=== PATIENT | male | born 1970 | race Caucasian/White ===

== ENCOUNTER 2018-01-28 17:42 | Inpatient (IN) | payer SELFPAY ==
[2018-01-28] MEDS ORDERED: Ondansetron ODT 4 MG TAB SL PRN (21:18)
[2018-01-28] MEDS ORDERED: Ondansetron PF 4 MG/2 ML Vial IVP PRN (21:18)
[2018-01-28] MEDS ORDERED: Sodium Chloride 0.9% 1,000 ML IV SCH (21:30)
[2018-01-28] MEDS ORDERED: Clindamycin/D5W 900 MG in Premix Bag 1 BAG IVPB SCH (22:00)
[2018-01-28 22:04] VITALS: BMI 34.2
[2018-01-29] MEDS ORDERED: Dextrose 5% in Water 1,000 ML IV PRN ×2 (01:08→09:43)
[2018-01-29] MEDS ORDERED: Dextrose 50% Abboject 50 ML SYRINGE SLOW IVP PRN ×2 (01:08→09:43)
--- NOTE | 2018-01-29 01:27 | PDOC.EVN ---
Event Note - Event Note Event Note: h&p dictation #[id number]
[2018-01-29] MEDS ORDERED: Vancomycin HCl 1.75 GM in Sodium Chloride 0.9% 500 ML IVPB SCH (02:00)
--- NOTE | 2018-01-29 02:14 | HP ---
PRIMARY CARE PHYSICIAN: Gloria Kay NP CHIEF COMPLAINT: Left first toe infection. HISTORY OF PRESENT ILLNESS: This is a 47-year-old male with a known history of type 2 diabetes who presents with a chief complaint of his first left toe having cellulitis for the last 2 weeks that has persisted despite antibiotics. Patient states that he first noticed infection in that foot approximately 2 weeks ago when there was some blood on his sock. Since then he has placed gauze over it at home and taken cephalexin, a K9 formulation. Also in that timeframe, he has been caring for 10 new puppies would have been unfortunately looking his foot as well. He has also been outside and the foot has been exposed to a fair amount of mud and moisture. No prior similar episodes. No fevers, no chills. The patient endorses having some swelling and discomfort when walking on that same foot. REVIEW OF SYSTEMS: As per HPI. Constitutional: No fevers, no chills. No significant weight gain or loss. HEENT: No any headaches, lightheadedness, vision changes, or dizziness. Cardiovascular: Denies any chest pain, chest pressure, left-sided arm numbness or tingling. Respiratory: No shortness of breath, cough, or congestion. Gastrointestinal: Denies any nausea, vomiting, abdominal pain issues with diarrhea or constipation. Genitourinary: Denies any issues with dysuria or changes in urinary quality, quantity, or odor. Musculoskeletal: No new myalgias or arthralgias other than the discomfort with his left first toe. PAST MEDICAL HISTORY: As per HPI, significant for type 2 diabetes, prior abdominal wound infection. No other prior surgeries or medical issues that the patient is aware of. HOME MEDICATIONS: The patient takes metformin without change in the last month , cephalexin as noted above. ALLERGIES: No known drug allergies. FAMILY HISTORY: The patient denies any known family history of diabetes or recurrent wound infections. SOCIAL HISTORY: The patient denies any alcohol, tobacco, or illicit drug use. PHYSICAL EXAMINATION: GENERAL: The patient is awake, alert, conversant, in no acute distress, lying in the hospital bed. HEENT: Normocephalic, atraumatic, equal ocular motions are intact. Moist mucous membranes, poor dentition. CARDIOVASCULAR: S1, S2. No murmurs, rubs, or gallops. Pulses 2+ bilateral upper extremities, no pitting pedal edema. RESPIRATORY: Reasonable air movement. No conversational dyspnea. No wheezes, rales or rhonchi. Grossly clear to auscultation bilaterally. ABDOMEN: Positive bowel sounds, soft, nontender to palpation. MUSCULOSKELETAL: Moving all 4 extremities. The left great toe appears to have an area of maceration around the area of cellulitis at the bottom of the toe. There are some skin changes throughout the entire first toe that appeared to have a kind of chronic nature. No obvious purulence currently at this point in time. LABORATORY DATA: WBC 8.3, hemoglobin 12.12, hematocrit 36.7, platelets of 297, 000. Sodium 134, potassium 3.8, chloride of 99, bicarbonate 25, BUN 10, creatinine 1.26, glucose 495. Lactic acid 2.2, calcium 9.2, AST 11, ALT 14, alkaline phosphatase 135. Creatine kinase 81, troponin less than 0.01. CRP 5.98, total protein 7.4, albumin 3.3. ASSESSMENT AND PLAN: This is a 47-year-old male who presents with a first left great toe infection. 1. Left first metatarsal infection. Failing outpatient cephalexin, although it is not clear that he was necessarily taking an appropriate dose. Consult Wound Care. Empiric antibiotics include vancomycin, metronidazole, ciprofloxacin, antipseudomonal dosing. Wound Care consult appreciated. 2. Type 2 diabetes with significant hyperglycemia on admission. Continue the patient's metformin, check hemoglobin A1c, initiate hypoglycemia protocol. 3. Diet: Diabetic. 4. Activity: As tolerated. 5. Deep venous thrombosis prophylaxis with Lovenox. Thank you for asking me to care for the patient. JOVAN
[2018-01-29 05:10] LABS: #Eosinphils 0.4 thou/uL (0.0-0.7); #Lymphocytes 1.7 thou/uL (1.20-3.40); #Monocytes 0.4 thou/uL (0.11-0.59); #Neutrophils 3.6 thou/uL (1.40-6.50); %Basophils 0.7 % (0.0-1.0); %Eosinophils 6.4 % (0.0-10.0); %Monocytes 6.5 % (0.0-10.0); %Neutrophils 58.4 % (42.0-75.0); Hemoglobin 11.1 g/dL (14.0-18.0); Mean Platelet Volume 6.9 fL (7.4-10.4); Platelet Count 264 thou/uL (130-400); RBC Distribution Width 11.7 % (11.5-14.5); Red Blood Cell (RBC) Count 3.71 mill/uL (4.70-6.10); White Blood Cell (WBC) Count 6.1 thou/uL (4.8-10.8)
[2018-01-29 05:16] LABS: Hemoglobin A1c 17.2 % (4.0-6.0)
[2018-01-29 05:36] LABS: Anion Gap 10 mmol/L (10-20); BUN (Urea Nitrogen) 10 mg/dL (8.9-20.6); Calc. Creatinine Clearance 195 mL/min (70-130); Calcium 8.6 mg/dL (7.8-10.44); Carbon Dioxide 25 mmol/L (22-29); Chloride 104 mmol/L (98-107); Estimated GFR-MDRD Greater than 90; Glucose 277 mg/dL (70-105); Potassium 3.6 mmol/L (3.5-5.1); Sodium 135 mmol/L (136-145)
[2018-01-29] MEDS ORDERED: Vancomycin HCl 1 GM in Premix Bag 1 BAG IVPB SCH (06:00)
[2018-01-29] MEDS: metroNIDAZOLE 500 MG in Premix Bag 1 BAG IVPB SCH ×3 (06:20→22:44)
[2018-01-29] MEDS: HumaLOG 300 UNITS/3 ML VIAL SC PRN ×4 (06:46→20:03)
[2018-01-29] MEDS: Enoxaparin Sodium 40 MG/0.4 ML SYRINGE SC SCH (08:27)
[2018-01-29] MEDS: metFORMIN 500 MG TAB PO SCH ×2 (08:27→20:02)
--- NOTE | 2018-01-29 09:06 | ULT ---
LEFT LOWER EXTREMITY VENOUS DOPPLER: 01/28/2018 HISTORY: Left lower extremity swelling, redness, and pain. Injury/wound to left great toe two weeks ago. This examination was performed on 01/28/2018 at 1806 hours but is not being submitted for interpretat ion until 0005 hours. TECHNIQUE: Rodriguez-scale, color-flow, Doppler evaluation, and spectral analysis of the left lower extremity venous structures is performed with 2D imaging. The left lower extremity common femoral vein, superficial f emoral vein, popliteal vein, posterior tibial vein, most proximal greater saphenous vein, and profund a femoral vein are imaged. FINDINGS: There is normal lumen compressibility, flow, and augmentation of the visualized deep venous structure s of the left lower extremity. There is subcutaneous edema seen in the distal left lower extremity. There are enlarged and abnormal appearing lymph nodes seen within the left inguinal region. The larg est lymph node measures approximately 4.3 cm x 1.7 cm. IMPRESSION: 1. Abnormal appearing enlarged right inguinal lymph nodes. Findings could be reactive. Follow-up e valuation is recommended, given the appearance of these lymph nodes. 2. No evidence of a deep venous thrombosis involving the visualized deep venous structures of the le ft lower extremity. POS: [facility]
[2018-01-29] MEDS: Vancomycin HCl 1.75 GM in Sodium Chloride 0.9% 500 ML IVPB SCH ×2 (12:36→20:03)
[2018-01-29] MEDS: Acetaminophen 325 MG TAB PO PRN (12:44)
--- NOTE | 2018-01-29 16:31 | PDOC.EVN ---
Event Note - Event Note Event Note: Pt seen and examined.Care discussed w mom at bedside non compliant w meds. cont ABx,wound care start lantus BID as A1c over 17.cont metformin.chnage to LR for compliance on DC. will follow. HD stable
[2018-01-29] MEDS ORDERED: Insulin Glargine 10 UNITS in Pre-Filled Syringe 1 EACH SC SCH (21:00)
[2018-01-30 04:11] LABS: Vancomycin, Trough 19.9 ug/mL
[2018-01-30] MEDS: Vancomycin HCl 1.75 GM in Sodium Chloride 0.9% 500 ML IVPB SCH ×3 (04:20→22:17)
[2018-01-30] MEDS: metroNIDAZOLE 500 MG in Premix Bag 1 BAG IVPB SCH ×3 (05:35→20:20)
[2018-01-30] MEDS: HumaLOG 300 UNITS/3 ML VIAL SC PRN ×4 (05:55→20:24)
[2018-01-30] MEDS: metFORMIN 500 MG TAB PO SCH (08:51)
[2018-01-30] MEDS: Enoxaparin Sodium 40 MG/0.4 ML SYRINGE SC SCH (08:51)
[2018-01-30] MEDS ORDERED: Insulin Glargine 10 UNITS in Pre-Filled Syringe 1 EACH SC SCH (09:00)
--- NOTE | 2018-01-30 15:32 | PDOC.PN ---
- Subjective Encounter Start Date: 01/30/18 Encounter Start Time: 15:30 Subjective: feels better. no gever/chills -: no new complaints. - Objective Resuscitation Status: Resuscitation Status FULL:Full Resuscitation MAR Reviewed: Yes Vital Signs & Weight: Vital Signs (12 hours) Temp Pulse Resp BP Pulse Ox 01/30/18 08:00 97 01/30/18 07:37 97.4 F L 80 18 146/85 H 97 Weight Admit Weight 274 lb Weight 274 lb I&O: 01/29/18 01/30/18 01/31/18 06:59 06:59 06:59 Intake Total 240 Balance 240 Result Diagrams: 01/29/18 04:35 01/29/18 04:35 Additional Labs: Accuchecks 01/30/18 01/30/18 01/29/18 11:24 04:38 17:06 POC Glucose 221 H 322 H 280 H Microbiology 01/28/18 19:44 Venous blood - Left Hand Blood Culture - Preliminary NO GROWTH AT 48 HOURS 01/28/18 19:38 Venous blood - Right Hand Blood Culture - Preliminary NO GROWTH AT 48 HOURS Phys Exam - Physical Examination Constitutional: NAD HEENT: PERRLA, moist MMs, sclera anicteric, oral pharynx no lesions Neck: no nodes, no JVD, supple, full ROM Respiratory: no wheezing, no rales, no rhonchi, clear to auscultation bilateral Cardiovascular: RRR, no significant murmur, no rub Gastrointestinal: soft, non-tender, no distention, positive bowel sounds Musculoskeletal: no edema, pulses present wound dressed Neurological: non-focal, normal sensation, moves all 4 limbs Psychiatric: normal affect, A&O x 3 Skin: no rash Dx/Plan (1) Diabetic foot infection Code(s): E11.628 - TYPE 2 DIABETES MELLITUS WITH OTHER SKIN COMPLICATIONS; L08.9 - LOCAL INFECTION OF THE SKIN AND SUBCUTANEOUS TISSUE, UNSP Status: Acute (2) Uncontrolled diabetes mellitus Code(s): E11.65 - TYPE 2 DIABETES MELLITUS WITH HYPERGLYCEMIA Status: Chronic Qualifiers: Diabetes mellitus type: type 2 (3) HTN (hypertension) Code(s): I10 - ESSENTIAL (PRIMARY) HYPERTENSION Status: Chronic (4) Obesity (BMI 30.0-34.9) Code(s): E66.9 - OBESITY, UNSPECIFIED Status: Chronic - Plan continue antibiotics, out of bed/ambulate, DVT proph w/SCDs cont IV ABx.ann CARNES tomorrow if remian stable -: increase lantus as blood sugar still very high.ISS.metfromin. -: chnage to Long acting metformin -: OP wound care set up done * . Review of Systems - Review of Systems Constitutional: negative: fever, chills, sweats, weakness, malaise, other ENT: negative: Ear Pain, Ear Discharge, Nose Pain, Nose Discharge, Nose Congestion, Mouth Pain, Mouth Swelling, Throat Pain, Throat Swelling, Other Respiratory: negative: Cough, Dry, Shortness of Breath, Hemoptysis, SOB with Excertion, Pleuritic Pain, Sputum, Wheezing Cardiovascular: negative: chest pain, palpitations, orthopnea, paroxysmal nocturnal dyspnea, edema, light headedness, other Gastrointestinal: negative: Nausea, Vomiting, Abdominal Pain, Diarrhea, Constipation, Melena, Hematochezia, Other Genitourinary: negative: Dysuria, Frequency, Incontinence, Hematuria, Retention , Other Musculoskeletal: negative: Neck Pain, Shoulder Pain, Arm Pain, Back Pain, Hand Pain, Leg Pain, Foot Pain, Other Neurological: negative: Weakness, Numbness, Incoordination, Change in Speech, Confusion, Seizures, Other - Medications/Allergies Allergies/Adverse Reactions: Allergies Allergy/AdvReac Type Severity Reaction Status Date / Time No Known Drug Allergies Allergy Verified 01/29/18 06:40 Medications: Current Medications Acetaminophen (Tylenol) 650 mg PO Q4H PRN PRN Reason: Headache/Fever/Mild Pain (1-3) Last Admin: 01/29/18 12:44 Dose: 650 mg Dextrose/Water (Dextrose 50%) 25 gm SLOW IVP PRN PRN PRN Reason: Hypoglycemia Enoxaparin Sodium (Lovenox) 40 mg SC 0900 [facility] Last Admin: 01/30/18 08:51 Dose: 40 mg Glucagon (Glucagon) 1 mg IM PRN PRN PRN Reason: Hypoglycemia Metronidazole 500 mg/ Device 100 mls @ 100 mls/hr IVPB Q8HR [facility] Last Admin: 01/30/18 14:08 Dose: 100 mls Ciprofloxacin/Dextrose 400 mg/ (Device) 200 mls @ 200 mls/hr IVPB 0800,1600, 2359 [facility] Last Admin: 01/30/18 08:54 Dose: 200 mls Vancomycin HCl 1.75 gm/ Sodium (Chloride) 500 mls @ 250 mls/hr IVPB 0400,1200, 2000 [facility] Last Admin: 01/30/18 11:36 Dose: 500 mls Dextrose/Water (D5w) 1,000 mls @ 0 mls/hr IV .Q0M PRN PRN Reason: Hypoglycemia Insulin Glargine 15 units/ (Miscellaneous Medication) 0.15 mls @ 1 mls/hr SC QAM [facility] Insulin Glargine 15 units/ (Miscellaneous Medication) 0.15 mls @ 1 mls/hr SC HS [facility] Insulin Human Lispro (Humalog) 0 units SC .MILD SLIDING SCALE PRN PRN Reason: Mild Correctional Scale Last Admin: 01/30/18 11:36 Dose: 3 unit Metformin HCl (Glucophage) 1,000 mg PO BID [facility] Last Admin: 01/30/18 08:51 Dose: 1,000 mg Miscellaneous Medication (Pharmacy To Dose) 1 each IVPB ONE PRN PRN Reason: Pharmacy to dose Stop: 02/08/18 01:18 [employer]
[2018-01-30] MEDS: Insulin Glargine 15 UNITS in Pre-Filled Syringe 1 EACH SC SCH (20:24)
[2018-01-31] MEDS: Vancomycin HCl 1.75 GM in Sodium Chloride 0.9% 500 ML IVPB SCH (05:26)
[2018-01-31] MEDS: metroNIDAZOLE 500 MG in Premix Bag 1 BAG IVPB SCH ×3 (05:26→22:43)
[2018-01-31] MEDS: HumaLOG 300 UNITS/3 ML VIAL SC PRN ×4 (05:59→20:15)
[2018-01-31] MEDS: Vancomycin HCl 1.5 GM in Sodium Chloride 0.9% 250 ML 300 ML IVPB SCH ×3 (06:36→20:08)
[2018-01-31] MEDS ORDERED: Insulin Glargine 15 UNITS in Pre-Filled Syringe 1 EACH SC SCH (09:00)
[2018-01-31] MEDS: Enoxaparin Sodium 40 MG/0.4 ML SYRINGE SC SCH (10:17)
[2018-01-31] MEDS: metFORMIN XR 500 MG TAB PO SCH (10:18)
[2018-01-31] MEDS ORDERED: Lisinopril 5 MG TAB PO SCH ×2 (12:30→21:00)
--- NOTE | 2018-01-31 12:40 | PDOC.PN ---
- Subjective Encounter Start Date: 01/31/18 Encounter Start Time: 12:39 Subjective: feels good. no pain.no N/N.some loose stools - Objective Resuscitation Status: Resuscitation Status FULL:Full Resuscitation MAR Reviewed: Yes Vital Signs & Weight: Vital Signs (12 hours) Temp Pulse Resp BP Pulse Ox 01/31/18 08:00 95 01/31/18 07:39 97.4 F L 87 20 187/99 H 95 Weight Admit Weight 274 lb Weight 274 lb I&O: 01/30/18 01/31/18 02/01/18 06:59 06:59 06:59 Intake Total 240 1070 Balance 240 1070 Result Diagrams: 01/29/18 04:35 01/29/18 04:35 Additional Labs: Accuchecks 01/31/18 01/31/18 01/30/18 11:11 04:33 19:52 POC Glucose 192 H 348 H 221 H 01/30/18 16:50 POC Glucose 230 H Microbiology 01/28/18 19:44 Venous blood - Left Hand Blood Culture - Preliminary NO GROWTH AT 48 HOURS 01/28/18 19:38 Venous blood - Right Hand Blood Culture - Preliminary NO GROWTH AT 48 HOURS Phys Exam - Physical Examination Constitutional: NAD HEENT: PERRLA, moist MMs, sclera anicteric, oral pharynx no lesions Neck: no nodes, no JVD, supple, full ROM Respiratory: no wheezing, no rales, no rhonchi, clear to auscultation bilateral Cardiovascular: RRR, no significant murmur, no rub Gastrointestinal: soft, non-tender, no distention, positive bowel sounds Musculoskeletal: no edema, pulses present Neurological: non-focal, normal sensation, moves all 4 limbs Psychiatric: normal affect, A&O x 3 Skin: no rash Dx/Plan (1) Diabetic foot infection Code(s): E11.628 - TYPE 2 DIABETES MELLITUS WITH OTHER SKIN COMPLICATIONS; L08.9 - LOCAL INFECTION OF THE SKIN AND SUBCUTANEOUS TISSUE, UNSP Status: Acute (2) Uncontrolled diabetes mellitus Code(s): E11.65 - TYPE 2 DIABETES MELLITUS WITH HYPERGLYCEMIA Status: Chronic Qualifiers: Diabetes mellitus type: type 2 (3) HTN (hypertension) Code(s): I10 - ESSENTIAL (PRIMARY) HYPERTENSION Status: Chronic (4) Obesity (BMI 30.0-34.9) Code(s): E66.9 - OBESITY, UNSPECIFIED Status: Chronic - Plan continue antibiotics, out of bed/ambulate BP high.start lisinopril.monitor -: blood sugar better controlled .cont higher dose Lantus & metformin -: HD stable -: wound care -: DC tomorrow if BP better.add Florastor * . Review of Systems - Review of Systems Constitutional: negative: fever, chills, sweats, weakness, malaise, other ENT: negative: Ear Pain, Ear Discharge, Nose Pain, Nose Discharge, Nose Congestion, Mouth Pain, Mouth Swelling, Throat Pain, Throat Swelling, Other Respiratory: negative: Cough, Dry, Shortness of Breath, Hemoptysis, SOB with Excertion, Pleuritic Pain, Sputum, Wheezing Cardiovascular: negative: chest pain, palpitations, orthopnea, paroxysmal nocturnal dyspnea, edema, light headedness, other Gastrointestinal: negative: Nausea, Vomiting, Abdominal Pain, Diarrhea, Constipation, Melena, Hematochezia, Other Genitourinary: negative: Dysuria, Frequency, Incontinence, Hematuria, Retention , Other Musculoskeletal: negative: Neck Pain, Shoulder Pain, Arm Pain, Back Pain, Hand Pain, Leg Pain, Foot Pain, Other Skin: negative: Rash, Lesions, Enrrique, Bruising, Other Neurological: negative: Weakness, Numbness, Incoordination, Change in Speech, Confusion, Seizures, Other - Medications/Allergies Allergies/Adverse Reactions: Allergies Allergy/AdvReac Type Severity Reaction Status Date / Time No Known Drug Allergies Allergy Verified 01/29/18 06:40 Medications: Current Medications Acetaminophen (Tylenol) 650 mg PO Q4H PRN PRN Reason: Headache/Fever/Mild Pain (1-3) Last Admin: 01/29/18 12:44 Dose: 650 mg Dextrose/Water (Dextrose 50%) 25 gm SLOW IVP PRN PRN PRN Reason: Hypoglycemia Enoxaparin Sodium (Lovenox) 40 mg SC 0900 [facility] Last Admin: 01/31/18 10:17 Dose: 40 mg Glucagon (Glucagon) 1 mg IM PRN PRN PRN Reason: Hypoglycemia Metronidazole 500 mg/ Device 100 mls @ 100 mls/hr IVPB Q8HR REPLACED [facility] Last Admin: 01/31/18 05:26 Dose: 100 mls Ciprofloxacin/Dextrose 400 mg/ (Device) 200 mls @ 200 mls/hr IVPB 0800,1600, 2359 [facility]PL[facility] Last Admin: 01/31/18 10:18 Dose: 200 mls Dextrose/Water (D5w) 1,000 mls @ 0 mls/hr IV .Q0M PRN PRN Reason: Hypoglycemia Insulin Glargine 15 units/ (Miscellaneous Medication) 0.15 mls @ 1 mls/hr SC QAM REPL[facility]ED [facility] Last Admin: 01/31/18 10:17 Dose: 0.15 mls Insulin Glargine 15 units/ (Miscellaneous Medication) 0.15 mls @ 1 mls/hr SC HS REPL[facility] Last Admin: 01/30/18 20:24 Dose: 0.15 mls Vancomycin HCl 1.5 gm/ Sodium (Chloride) 300 mls @ 200 mls/hr IVPB Q8HR REPLACED [facility] Last Admin: 01/31/18 06:36 Dose: 300 mls Insulin Human Lispro (Humalog) 0 units SC .MILD SLIDING SCALE PRN PRN Reason: Mild Correctional Scale Last Admin: 01/31/18 05:59 Dose: 5 unit Lisinopril (Zestril) 5 mg PO BID REPLACED BY [facility] Lisinopril (Zestril) 5 mg PO NOW REPLACED BY [facility] Stop: 01/31/18 14:30 Metformin HCl (Glucophage Xr) 1,000 mg PO QA-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
[2018-01-31] MEDS ORDERED: Saccharomyces boulardii 250 MG CAP PO SCH (12:45)
[2018-01-31] MEDS: Insulin Glargine 15 UNITS in Pre-Filled Syringe 1 EACH SC SCH (20:15)
[2018-02-01] MEDS: metroNIDAZOLE 500 MG in Premix Bag 1 BAG IVPB SCH ×3 (05:06→20:29)
[2018-02-01] MEDS: HumaLOG 300 UNITS/3 ML VIAL SC PRN ×3 (05:08→20:32)
[2018-02-01] MEDS: Vancomycin HCl 1.5 GM in Sodium Chloride 0.9% 250 ML 300 ML IVPB SCH ×3 (06:22→21:47)
[2018-02-01 08:02] VITALS: TEMP 97.7
[2018-02-01] MEDS: metFORMIN XR 500 MG TAB PO SCH (09:28)
[2018-02-01] MEDS: Lisinopril/Hydrochlorothiazide 10 mg/12.5 mg Tablet PO SCH (09:43)
[2018-02-01] MEDS: Saccharomyces boulardii 250 MG CAP PO SCH (09:43)
[2018-02-01] MEDS: Enoxaparin Sodium 40 MG/0.4 ML SYRINGE SC SCH (09:43)
[2018-02-01] MEDS: Insulin Glargine 20 UNITS in Pre-Filled Syringe 1 EACH SC SCH (09:44)
--- NOTE | 2018-02-01 11:39 | PDOC.PN ---
- Subjective Encounter Start Date: 02/01/18 Encounter Start Time: 11:45 Subjective: no new complaints.feels well.no pain in toe - Objective Resuscitation Status: Resuscitation Status FULL:Full Resuscitation MAR Reviewed: Yes Vital Signs & Weight: Vital Signs (12 hours) Temp Pulse Resp BP BP Pulse Ox 02/01/18 09:43 89 162/92 H 02/01/18 08:00 94 L 02/01/18 07:58 97.7 F 89 14 162/92 H 94 L Weight Admit Weight 274 lb Weight 274 lb I&O: 01/31/18 02/01/18 02/02/18 06:59 06:59 06:59 Intake Total 1070 1050 Balance 1070 1050 Result Diagrams: 01/29/18 04:35 01/29/18 04:35 Additional Labs: Accuchecks 02/01/18 01/31/18 01/31/18 04:04 19:56 16:03 POC Glucose 264 H 340 H 242 H 01/31/18 11:11 POC Glucose 192 H Microbiology 01/28/18 19:44 Venous blood - Left Hand Blood Culture - Preliminary NO GROWTH AT 48 HOURS 01/28/18 19:38 Venous blood - Right Hand Blood Culture - Preliminary NO GROWTH AT 48 HOURS Phys Exam - Physical Examination Constitutional: NAD HEENT: PERRLA, moist MMs, sclera anicteric, oral pharynx no lesions Neck: no nodes, no JVD, supple, full ROM Respiratory: no wheezing, no rales, no rhonchi, clear to auscultation bilateral Cardiovascular: RRR, no significant murmur, no rub Gastrointestinal: soft, non-tender, no distention, positive bowel sounds Musculoskeletal: no edema, pulses present Left great toe wound clean and dry Neurological: non-focal, normal sensation, moves all 4 limbs Psychiatric: normal affect, A&O x 3 Skin: no rash Dx/Plan (1) Diabetic foot infection Code(s): E11.628 - TYPE 2 DIABETES MELLITUS WITH OTHER SKIN COMPLICATIONS; L08.9 - LOCAL INFECTION OF THE SKIN AND SUBCUTANEOUS TISSUE, UNSP Status: Acute (2) Uncontrolled diabetes mellitus Code(s): E11.65 - TYPE 2 DIABETES MELLITUS WITH HYPERGLYCEMIA Status: Chronic Qualifiers: Diabetes mellitus type: type 2 (3) HTN (hypertension) Code(s): I10 - ESSENTIAL (PRIMARY) HYPERTENSION Status: Chronic (4) Obesity (BMI 30.0-34.9) Code(s): E66.9 - OBESITY, UNSPECIFIED Status: Chronic - Plan continue antibiotics, out of bed/ambulate, DVT proph w/SCDs BP still high and uncontrolled -: stop lisinopril & start prinizide.monitor -: Blood sugar also still uncontrolled.Increase lantus more .cont metformin XR -: Wound care. -: Dc later today if BP better or tomorrow.OP wound care is set up * . Review of Systems - Review of Systems Constitutional: negative: fever, chills, sweats, weakness, malaise, other ENT: negative: Ear Pain, Ear Discharge, Nose Pain, Nose Discharge, Nose Congestion, Mouth Pain, Mouth Swelling, Throat Pain, Throat Swelling, Other Respiratory: negative: Cough, Dry, Shortness of Breath, Hemoptysis, SOB with Excertion, Pleuritic Pain, Sputum, Wheezing Cardiovascular: negative: chest pain, palpitations, orthopnea, paroxysmal nocturnal dyspnea, edema, light headedness, other Gastrointestinal: negative: Nausea, Vomiting, Abdominal Pain, Diarrhea, Constipation, Melena, Hematochezia, Other Genitourinary: negative: Dysuria, Frequency, Incontinence, Hematuria, Retention , Other Musculoskeletal: negative: Neck Pain, Shoulder Pain, Arm Pain, Back Pain, Hand Pain, Leg Pain, Foot Pain, Other Skin: negative: Rash, Lesions, Enrrique, Bruising, Other Neurological: negative: Weakness, Numbness, Incoordination, Change in Speech, Confusion, Seizures, Other - Medications/Allergies Allergies/Adverse Reactions: Allergies Allergy/AdvReac Type Severity Reaction Status Date / Time No Known Drug Allergies Allergy Verified 01/29/18 06:40 Medications: Current Medications Acetaminophen (Tylenol) 650 mg PO Q4H PRN PRN Reason: Headache/Fever/Mild Pain (1-3) Last Admin: 01/29/18 12:44 Dose: 650 mg Dextrose/Water (Dextrose 50%) 25 gm SLOW IVP PRN PRN PRN Reason: Hypoglycemia Enoxaparin Sodium (Lovenox) 40 mg SC 0900 [facility] Last Admin: 02/01/18 09:43 Dose: 40 mg Glucagon (Glucagon) 1 mg IM PRN PRN PRN Reason: Hypoglycemia Lisinopril/HCTZ (Prinizide -.5) 1 tab PO DAILY [facility] Last Admin: 02/01/18 09:43 Dose: 1 tab Metronidazole 500 mg/ Device 100 mls @ 100 mls/hr IVPB Q8HR [facility] Last Admin: 02/01/18 05:06 Dose: 100 mls Ciprofloxacin/Dextrose 400 mg/ (Device) 200 mls @ 200 mls/hr IVPB 0800,1600, 2359 [facility] Last Admin: 02/01/18 09:44 Dose: 200 mls Dextrose/Water (D5w) 1,000 mls @ 0 mls/hr IV .Q0M PRN PRN Reason: Hypoglycemia Vancomycin HCl 1.5 gm/ Sodium (Chloride) 300 mls @ 200 mls/hr IVPB Q8HR [facility] Last Admin: 02/01/18 06:22 Dose: 300 mls Insulin Glargine 20 units/ (Miscellaneous Medication) 0.2 mls @ 0 mls/hr SC [facility] Insulin Glargine 20 units/ (Miscellaneous Medication) 0.2 mls @ 0 mls/hr SC QAM [facility] Last Admin: 02/01/18 09:44 Dose: 0.2 mls Insulin Human Lispro (Humalog) 0 units SC .MILD SLIDING SCALE PRN PRN Reason: Mild Correctional Scale Last Admin: 02/01/18 05:08 Dose: 3 unit Metformin HCl (Glucophage Xr) 1,000 mg PO QAM-[facility] Last Admin: 02/01/18 09:28 Dose: 1,000 mg Miscellaneous Medication (Pharmacy To Dose) 1 each IVPB ONE PRN PRN Reason: Pharmacy to dose Stop: 02/08/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
[2018-02-01 13:27] LABS: Vancomycin, Trough 17.9 ug/mL
[2018-02-01] MEDS: Acetaminophen 325 MG TAB PO PRN (20:29)
[2018-02-01] MEDS ORDERED: Insulin Glargine 20 UNITS in Pre-Filled Syringe 1 EACH SC SCH (21:00)
[2018-02-02] MEDS: metroNIDAZOLE 500 MG in Premix Bag 1 BAG IVPB SCH ×2 (05:25→13:15)
[2018-02-02] MEDS: HumaLOG 300 UNITS/3 ML VIAL SC PRN (05:49)
[2018-02-02] MEDS: Vancomycin HCl 1.5 GM in Sodium Chloride 0.9% 250 ML 300 ML IVPB SCH ×2 (06:32→16:54)
[2018-02-02 08:29] VITALS: BP 149/89
[2018-02-02] MEDS: Saccharomyces boulardii 250 MG CAP PO SCH (08:38)
[2018-02-02] MEDS: Enoxaparin Sodium 40 MG/0.4 ML SYRINGE SC SCH (08:38)
[2018-02-02] MEDS: Lisinopril/Hydrochlorothiazide 10 mg/12.5 mg Tablet PO SCH (08:38)
[2018-02-02] MEDS: metFORMIN XR 500 MG TAB PO SCH (09:35)
[2018-02-02] MEDS: Insulin Glargine 20 UNITS in Pre-Filled Syringe 1 EACH SC SCH (09:37)
== END 2018-02-02 16:20 | disposition home or self-care (01) | DRG 639 ==
LOC: ERS 17:42 → T4-B 18:27
PROVIDERS: ADMIT Internal Medicine; ATTEND Internal Medicine
DX: E11.628 Type 2 diabetes mellitus with other skin complications (principal); L08.9 Local infection of the skin and subcutaneous tissue, unspecified; E11.65 Type 2 diabetes mellitus with hyperglycemia; E66.9 Obesity, unspecified; Z68.34 Body mass index [BMI] 34.0-34.9, adult; Z79.84 Long term (current) use of oral hypoglycemic drugs
CPT/HCPCS: 36415; 36416; 80048; 80202; 83036; 85025; 85652; 86140; 96365; 96366; J0744; J1650; J3370; J3490; J7050